=== PATIENT | female | born 1965 | race Caucasian/White ===

== ENCOUNTER 2023-05-28 17:17 | Observation (INO) | payer OTHER ==
[~2023-05-28] VITALS: Ht 162.6 cm; Wt 55.8 kg
[2023-05-28 17:56] LABS: BASOPHILS ABSOLUTE AUTO 0.14 K/mm3 (0.00-0.23); BASOPHILS PERCENT AUTO 1 % (0-2); EOSINOPHILS ABSOLUTE AUTO 0.73 K/mm3 (0.00-0.68); EOSINOPHILS PERCENT AUTO 7 % (0-6); Hematocrit 38.9 % (33.0-51.0); Hemoglobin 12.7 g/dL (11.5-16.0); IMMATURE GRAN ABSOLUTE AUTO 0.04 K/mm3 (0.00-0.10); IMMATURE GRAN PERCENT AUTO 0 % (0-1); LYMPHOCYTES ABSOLUTE AUTO 3.13 K/mm3 (0.84-5.20); LYMPHOCYTES PERCENT AUTO 28 % (21-46); MONOCYTES ABSOLUTE AUTO 0.97 K/mm3 (0.16-1.47); MONOCYTES PERCENT AUTO 9 % (4-13); Mean Corpuscular HGB 29.9 pg (26.0-34.0); Mean Corpuscular HGB Conc 32.6 g/dL (31.5-36.5); Mean Corpuscular Volume 92 fL (80-100); Mean Platelet Volume 10.9 fL (9.1-12.4); NEUTROPHILS PERCENT AUTO 55 % (41-73); Platelet Count 426 K/mm3 (150-400); RDW Coefficient Variation 13.1 % (11.7-14.2); RDW Standard Deviation 43.1 fL (35.1-46.3); Red Blood Cell Count 4.25 M/mm3 (3.80-5.20); White Blood Cell Count 11.11 K/mm3 (4.00-11.30)
[2023-05-28 18:16] LABS: Albumin/Globulin Ratio 1.1 (0.8-1.8); Bilirubin, Total 0.4 mg/dL (0.1-1.0); Bun/Creatinine Ratio 24.5 (12.0-20.0); Calcium, Blood 9.2 mg/dL (8.5-10.1); Creatinine, Blood 0.74 mg/dL (0.40-1.00); Globulin, Blood 3.6 g/dL (2.2-4.0); Potassium, Blood 3.6 mmol/L (3.5-5.5); Total Protein, Blood 7.6 g/dL (6.4-8.2)
[2023-05-28] MEDS ORDERED: Aspir 8181 MG PO (19:22)
[2023-05-28] MEDS ORDERED: ATOR20 PO (19:22)
[2023-05-28] MEDS ORDERED: DILT30 PO (19:23)
[2023-05-28] MEDS ORDERED: Isosorbide Mono30 MG PO (19:23)
[2023-05-28 23:17] VITALS: BP 142/92
--- NOTE | 2023-05-29 00:38 | NUR ---
TRANSFER NOTE/PATIENT UPDATE PATIENT TRANSFERRED TO PCU AT 2315. PATIENT AMBULATED FROM [facility] TO BED. STEADY GAIT NOTED. PT DENIES CHEST PAIN/PRESSURE. SBP 140'S AT THIS TIME. SR ON MONITOR WITH HR 60-70'S. SPO2 >92% ON RA. BREATHING UNLABORED, DENIES SOB, NO DISTRESS NOTED. PT ALERT AND ORIENTED FULLY. ABLE TO MAKE NEEDS KNOWN. PT ANXIOUS. THIS RN SPENT TIME EDUCATING PT ON CURRENT ILLNESS AND PLAN OF CARE. BED IN LOWEST POSITION AND CALL LIGHT WITHIN REACH.
[2023-05-29 03:08] VITALS: BP 135/78
--- NOTE | 2023-05-29 06:02 | NUR ---
SHIFT SUMMARY NO ACUTE CHANGES SINCE ARRIVAL TO UNIT. DENIES CHEST PAIN/PRESSURE. VITALS STABLE. SBP 130'S. INDEPENDENT WITH ADLS. ALERT AND ORIENTED FULLY. ABLE TO MAKE NEEDS KNOWN. BED IN LOWEST POSITION AND CALL LIGHT WITHIN REACH. THIS RN WILL CONTINUE TO MONITOR UNTIL SHIFT CHANGE AT 0700.
[2023-05-29 07:42] VITALS: BP 141/70
[2023-05-29 10:00] VITALS: BP 165/87
[2023-05-29 10:07] VITALS: BP 137/86
--- NOTE | 2023-05-29 11:32 | NUR ---
UPDATE PT REPORTS CP RADIATING TO JAW. MEDICATED WITH NITRO SL ONCE, SEE EMAR. EKG DONE. ORERING MEDS TO ASSIST WITH ANXIETY. AT BEDSIDE BRENNAN.
[2023-05-29 12:16] VITALS: BP 111/78
[2023-05-29] MEDS ORDERED: DILT60ER PO (12:50)
[2023-05-29] MEDS ORDERED: ALPR.25 PO (12:51)
--- NOTE | 2023-05-29 13:21 | NUR ---
UPDATE/DISCHARGE PT PROVIDED WITH DISCHARGE INSTRUCTIONS PER MD. PAPER SCRIPT FOR XANAX PROVIDED TO PT PER MD. MEDS FAXED TO PT'S PREFERRED PHARMACY. IV'S REMOVED. TELE REMOVED. 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
== END 2023-05-29 13:55 | disposition home or self-care (01) ==
LOC: ER 17:17 → PCU 17:18
PROVIDERS: Emergency Medicine; ADMIT Student in an Organized Health Care Education/Training Program
DX: R07.89 Other chest pain (principal); F41.9 Anxiety disorder, unspecified; I16.0 Hypertensive urgency; I10 Essential (primary) hypertension; E78.5 Hyperlipidemia, unspecified
CPT/HCPCS: 36415; 71046; 80053; 83690; 83880; 84484; 85025; 93005; 93010; 96365; 96366; 96372; 99285-25; A9270; G0378; J1650

== ENCOUNTER 2024-05-30 15:58 | Emergency (ER) | payer OTHER ==
[~2024-05-30] VITALS: Ht 162.6 cm; Wt 54.4 kg
[~2024-05-30 15:58] MED LIST: ALPR.25 PO; ATOR20 PO; Aspir 8181 MG PO; DILT30 PO; DILT60ER PO; Isosorbide Mono30 MG PO
[2024-05-30 16:41] LABS: BASOPHILS ABSOLUTE AUTO 0.12 K/mm3 (0.00-0.23); BASOPHILS PERCENT AUTO 1 % (0-2); EOSINOPHILS ABSOLUTE AUTO 0.83 K/mm3 (0.00-0.68); EOSINOPHILS PERCENT AUTO 10 % (0-6); Hemoglobin 12.2 g/dL (11.5-16.0); IMMATURE GRAN ABSOLUTE AUTO 0.03 K/mm3 (0.00-0.10); IMMATURE GRAN PERCENT AUTO 0 % (0-1); LYMPHOCYTES ABSOLUTE AUTO 1.68 K/mm3 (0.84-5.20); LYMPHOCYTES PERCENT AUTO 20 % (21-46); MONOCYTES ABSOLUTE AUTO 0.76 K/mm3 (0.16-1.47); MONOCYTES PERCENT AUTO 9 % (4-13); Mean Corpuscular HGB 29.9 pg (26.0-34.0); Mean Corpuscular HGB Conc 32.1 g/dL (31.5-36.5); Mean Corpuscular Volume 93 fL (80-100); Mean Platelet Volume 10.8 fL (9.1-12.4); NEUTROPHILS ABSOLUTE AUTO 4.96 K/mm3 (1.96-9.15); NEUTROPHILS PERCENT AUTO 59 % (41-73); Platelet Count 386 K/mm3 (150-400); RDW Coefficient Variation 14.6 % (11.7-14.2); RDW Standard Deviation 50.3 fL (35.1-46.3); Red Blood Cell Count 4.08 M/mm3 (3.80-5.20); White Blood Cell Count 8.38 K/mm3 (4.00-11.30)
[2024-05-30 17:03] LABS: Albumin, Blood 3.8 g/dL (3.4-5.0); Albumin/Globulin Ratio 1.2 (0.8-1.8); Bilirubin, Total 0.6 mg/dL (0.1-1.0); Bun/Creatinine Ratio 22.2 (12.0-20.0); Calcium, Blood 8.5 mg/dL (8.5-10.1); Creatinine, Blood 0.77 mg/dL (0.40-1.00); Globulin, Blood 3.3 g/dL (2.2-4.0); Total Protein, Blood 7.1 g/dL (6.4-8.2)
[2024-05-30] MEDS ORDERED: Calan40 MG PO (19:06)
[2024-05-30] MEDS ORDERED: NITROGLYCERIN0.4 M3 SL (19:07)
[2024-05-30] MEDS ORDERED: RANOLAZINE ER500 M2 PO (19:08)
[2024-05-30] MEDS ORDERED: ISOSORBIDE MONO30 MG PO (19:08)
[2024-05-30] MEDS ORDERED: PANTOPRAZOLE SO40 M2 PO (19:08)
[2024-05-30] MEDS ORDERED: PRAVASTATIN SOD40 MG PO (19:09)
[2024-05-30] MEDS ORDERED: MAGNESIUM250 MG PO (19:09)
[2024-05-30] MEDS ORDERED: Nitroglycerin 0.4 MG SUBL SL PRN (19:25)
[2024-05-30] MEDS ORDERED: Mag Hydrox/AL Hydrox/Simeth 30 ML UDC PO ONE (20:20)
[2024-05-30] MEDS ORDERED: Pantoprazole Sodium 40 MG Injection IV ONE (20:20)
[2024-05-30] MEDS ORDERED: Lidocaine 2% Viscous Soln 15 ML UDC PO ONE (20:20)
[2024-05-30 21:00] VITALS: BP 169/82
== END 2024-05-30 21:13 | disposition home or self-care (01) ==
LOC: ER 15:58
PROVIDERS: Student in an Organized Health Care Education/Training Program
DX: R07.89 Other chest pain (principal); Z88.1 Allergy status to other antibiotic agents; Z88.8 Allergy status to other drugs, medicaments and biological substances; Z88.2 Allergy status to sulfonamides; Z79.899 Other long term (current) drug therapy; Z79.82 Long term (current) use of aspirin
CPT/HCPCS: 71046; 80053; 84484; 85025; 93005; 93010; 99285-25; A9270; C9113